=== PATIENT | male | born 1975 | race Caucasian/White ===

== ENCOUNTER 2017-03-09 13:46 | Emergency (ER) | payer OTHER ==
[~2017-03-09] VITALS: Ht 188 cm; Wt 139.3 kg
[2017-03-09 13:59] VITALS: BP 146/90; Ht 188 cm; Wt 139.3 kg
== END 2017-03-09 18:05 | disposition left against medical advice (07) ==
LOC: ED 13:46
DX: Z53.21 Procedure and treatment not carried out due to patient leaving prior to being seen by health care provider (principal)

== ENCOUNTER 2017-03-09 19:58 | Emergency (ER) | payer OTHER ==
[~2017-03-09] VITALS: Ht 188 cm; Wt 140.2 kg
[2017-03-09 20:04] VITALS: Ht 188 cm; Wt 140.2 kg
[2017-03-09 23:30] VITALS: BP 139/77
== END 2017-03-09 23:30 | disposition home or self-care (01) ==
LOC: ED 19:58
DX: J11.1 Influenza due to unidentified influenza virus with other respiratory manifestations (principal)